=== PATIENT | male | born 1990 | race Caucasian/White ===

== ENCOUNTER 2018-07-13 09:16 | Observation (INO) ==
[2018-07-13] MEDS ORDERED: Sod Chloride 0.9% Inj 1,000 ML IV.SIG ONE (10:07)
[2018-07-13] MEDS ORDERED: Morphine Inj 4 MG/ML Vial IV.PUSH ONE (10:07)
--- NOTE | 2018-07-13 10:27 | ED ---
HPI General Chief Complaint: Abdominal Pain Stated Complaint: abd pain Time Seen by Provider: 07/13/18 09:57 Source: patient Mode of arrival: ambulatory Limitations: no limitations History of Present Illness HPI narrative: Patient is a previously healthy 28-year-old male who presents with complaint of abdominal pain. He states that last night he had sharp, aching periumbilical abdominal pain with 2 episodes of nonbilious, nonbloody emesis. The emesis has since resolved but he has noticed that the pain is more prominent at this time in the right lower quadrant. It worsens with walking. No diarrhea, fever, chills. This is never happened before. No sick contacts that he is aware of. He last ate at 0830 this morning when he had an egg. complaint: Reports abdominal pain Onset (ago): hour(s) Pain Consistency: constant Location: Reports periumbilical and RLQ Severity: moderate Quality: Reports aching Relieving factors: nothing Exacerbating factors: other Associated symptoms: Reports nausea and vomiting Related Data Home Medications Medication Instructions Recorded Confirmed No Known Home Medications 07/13/18 07/13/18 Allergies Allergy/AdvReac Type Severity Reaction Status Date / Time No Known Allergies Allergy Unverified 07/13/18 10:03 Review of Systems ROS: all other systems reviewed are negative [facility] Medical History Medical History Patient denies medical problems (Acute) Surgical History Surgical History No history of previous surgery (Acute) Social History Social History Substance History: Active Abuse Smoking Status: Former smoker How Often Do You Have a Drink Containing Alcohol: 2 to 3 times a week Recent Travel in [facility] within the Last 8 Weeks: No Recent Out of Country Travel within the Last 8 Weeks: No Substance Abuse Detail Marijuana: Substance Use Status: Active Route Used Substance Abuse: Inhalation Immunization History Tetanus Immunization: >5 Years Exam Narrative Exam Narrative: GENERAL: Well-appearing male in no acute distress SKIN: Focused skin assessment warm/dry. No rashes. HEAD: Atraumatic. Normocephalic. EYES: Pupils equal and round. No scleral icterus. No injection or drainage. ENT: No nasal bleeding or discharge. Mucous membranes pink and moist. NECK: Trachea midline. No JVD. CARDIOVASCULAR: Regular rate and rhythm. No murmur appreciated. Intact and equal peripheral pulses. RESPIRATORY: No accessory muscle use. Clear to auscultation. Breath sounds equal bilaterally. GASTROINTESTINAL: Abdomen soft, tenderness most prominent in the right lower quadrant, nondistended. Positive Rovsing's. Hepatic and splenic margins not palpable. MUSCULOSKELETAL: No obvious deformities. No clubbing. No cyanosis. No edema. NEUROLOGICAL: Awake and alert. No obvious cranial nerve deficits. Motor grossly within normal limits. Normal speech. PSYCHIATRIC: Appropriate mood and affect; insight and judgment normal. Course Initial Documented Vital Signs Temperature 98.2 F 07/13/18 09:24 Pulse Rate 69 07/13/18 09:24 Respiratory Rate 16 07/13/18 09:24 Blood Pressure 139/75 07/13/18 09:24 Pulse Oximetry 99 07/13/18 09:24 Last Documented Vital Signs Temperature 98.2 F 07/13/18 09:24 Pulse Rate 66 07/13/18 12:44 Respiratory Rate 18 07/13/18 12:44 Blood Pressure 125/64 07/13/18 12:44 Pulse Oximetry 99 07/13/18 12:44 Medical Decision Making MDM Narrative Medical decision making narrative: Patient is a 28-year-old male who presents with complaint of abdominal pain that started periumbilical and has migrated to the right lower quadrant. He otherwise appears well and has stable vital signs. Labs reveal a leukocytosis but are otherwise unremarkable. CT is concerning for acute appendicitis. Zosyn has been ordered and I spoke with Dr. Engel, surgeon on-call, regarding his appendicitis whom plans on admission. Patient and family have been informed of the results. Medical Screen Exam Complete: Yes Emergency Medical Condition: Yes Differential Diagnosis Differential Diagnosis: Differential diagnosis includes but is not limited to gastroenteritis, mesenteric adenitis, appendicitis. Medical Records Medical records reviewed: Yes I reviewed the patient's medical records. Lab Data Lab results reviewed: Yes I reviewed the patient's lab results. Lab results narrative: Leukocytosis. Result diagrams: 07/13/18 10:15 07/13/18 10:15 Lab Results 07/13/18 07/13/18 07/13/18 Range/Units 10:15 10:15 10:20 WBC 15.2 H (4.0-11.0) th/mm3 RBC 5.25 (4.50-5.90) mil/mm3 Hgb 15.4 (13.0-17.0) gm/dL Hct 45.7 (39.0-51.0) % MCV 87.0 (80.0-100.0) fL MCH 29.3 (27.0-34.0) pg MCHC 33.7 (32.0-36.0) % RDW 13.1 (11.6-17.2) % Plt Count 278 (150-450) th/mm3 MPV 10.0 (7.0-11.0) fL Neut % (Auto) 74.8 H (16.0-70.0) % Lymph % (Auto) 18.7 (9.0-44.0) % [place] % (Auto) 5.6 (0.0-8.0) % Eos % (Auto) 0.6 (0.0-4.0) % Baso % (Auto) 0.3 (0.0-2.0) % Neut # (Auto) 11.4 H (1.8-7.7) th/mm3 Lymph # (Auto) 2.8 (1.0-4.8) th/mm3 [place] # (Auto) 0.9 (0.0-0.9) th/mm3 Eos # (Auto) 0.1 (0.0-0.4) th/mm3 Baso # (Auto) 0.0 (0.0-0.2) th/mm3 WBC Differential . Differential Comment Auto diff final Sodium 140 (136-145) meq/L Potassium 4.1 (3.5-5.1) meq/L Chloride 105 (98-107) meq/L Carbon Dioxide 27.3 (21.0-32.0) meq/L Anion Gap 8 (5-15) meq/L BUN 9 (7-18) mg/dL Creatinine 0.79 (0.60-1.30) mg/dL Estimated GFR Greater than 89 (>89) mL/min Random Glucose 91 (74-106) mg/dL Calcium 9.2 (8.5-10.1) mg/dL Total Bilirubin 0.7 (0.2-1.0) mg/dL AST 15 (15-37) U/L ALT 25 (12-78) U/L Alkaline Phosphatase 70 (45-117) U/L Total Protein 7.8 (6.4-8.2) g/dL Albumin 4.2 (3.4-5.0) g/dL Lipase 71 L (73-393) U/L Urine Color Yellow (Yellw/Straw) Urine Clarity Clear (Clear) Urine pH 8.0 (5.0-8.5) Ur Specific [place] 1.008 (1.002-1.035) Urine Protein Negative (Neg-Trace) mg/dL Urine Glucose (UA) Negative (Negative) mg/dL Urine Ketones Negative (Negative) mg/dL Urine Occult Blood Negative (Negative) Urine Nitrate Negative (Negative) Urine Bilirubin Negative (Negative) Urine Urobilinogen Less than 2 (Less than 2) mg/dL Ur Leukocyte Esterase Negative (Negative) Urine RBC Less than 1 (0-3) /hpf Urine WBC Less than 1 (0-5) /hpf Micro UA Comment Culture not ind Ur Microscopic Review Not Reportable Urine Culture Comments Culture not ind Imaging Data Attestation: I personally reviewed and interpreted this imaging study as follows : My impression: Appendicitis. Radiologist's impression: Abdomen/Pelvis CT 07/13/18 10:07 CONCLUSION: The imaging findings are diagnostic of acute appendicitis without any signs of rupture. The appendix is located in a retrocecal position. These findings were telephoned to Dr. Clark on 07/13/2018 at 12:31 PM. Discharge Plan Discharge Disposition Patient Disposition: 30 Still Patient Discharge Condition Condition: Stable Discharge Details Diagnosis: Acute appendicitis Physicians Team ED Provider: Adina Clark Primary Care Provider: Primary Care Physici,No Other Providers: Kristopher Engel ; Surgeons,[facility] Rxs /Orders / Referrals /Forms Prescriptions: No Action No Known Home Medications RF: 0 Status ED Status: With Doctor
[2018-07-13 11:15] LABS: Baso % (Auto) 0.3 % (0.0-2.0); Eos # (Auto) 0.1 th/mm3 (0.0-0.4); Eos % (Auto) 0.6 % (0.0-4.0); Hematocrit 45.7 % (39.0-51.0); Hemoglobin 15.4 gm/dL (13.0-17.0); Lymph # (Auto) 2.8 th/mm3 (1.0-4.8); Lymph % (Auto) 18.7 % (9.0-44.0); Mean Corpuscular HGB Conc 33.7 % (32.0-36.0); Mean Corpuscular Hemoglobin 29.3 pg (27.0-34.0); Mono # (Auto) 0.9 th/mm3 (0.0-0.9); Mono % (Auto) 5.6 % (0.0-8.0); Neut # (Auto) 11.4 th/mm3 (1.8-7.7); Neut % (Auto) 74.8 % (16.0-70.0); Platelet Count 278 th/mm3 (150-450); Red Blood Count 5.25 mil/mm3 (4.50-5.90); Red Cell Distribution Width 13.1 % (11.6-17.2); White Blood Count 15.2 th/mm3 (4.0-11.0)
[2018-07-13 11:19] LABS: Bilirubin,Urine Negative (Negative); Clarity,Urine Clear (Clear); Color,Urine Yellow (Yellw/Straw); Glucose,Urine (UA) Negative (Negative); Leukocyte Esterase,Urine Negative (Negative); Nitrite,Urine Negative (Negative); Specific Gravity,Urine 1.008 (1.002-1.035)
[2018-07-13 11:30] LABS: Alanine Aminotransferase 25 U/L (12-78); Albumin 4.2 g/dL (3.4-5.0); Anion Gap 8 meq/L (5-15); Aspartate Aminotransferase 15 U/L (15-37); Blood Urea Nitrogen 9 mg/dL (7-18); Calcium 9.2 mg/dL (8.5-10.1); Carbon Dioxide 27.3 meq/L (21.0-32.0); Chloride 105 meq/L (98-107); Glomerular Filtration Rate Greater Than 89 mL/min (>89); Glucose,Random 91 mg/dL (74-106); Lipase 71 U/L (73-393); Potassium 4.1 meq/L (3.5-5.1); Sodium 140 meq/L (136-145)
[2018-07-13 11:33] LABS: Alkaline Phosphatase 70 U/L (45-117); Total Protein 7.8 g/dL (6.4-8.2)
--- NOTE | 2018-07-13 12:32 | CT ---
EXAM DATE: 07/13/2018 12:01 PM EDT AGE/SEX: 28 years / Male INDICATIONS: Right lower abdominal pain CLINICAL DATA: This is the patient's initial encounter. Patient reports that signs and symptoms have been present for 1 day and indicates a pain score of 4/10. MEDICAL/SURGICAL HISTORY: None. None. ORAL CONTRAST: No oral contrast ingested. RADIATION DOSE: 6.64 CTDI (mGy) COMPARISON: No prior exams available for comparison. TECHNIQUE: Multiple contiguous axial images were obtained through the abdomen and pelvis following b olus infusion of 97ML ml Omnipaque 350 (iohexol) nonionic water-soluble contrast as a single exam d ose. No oral contrast ingested. Using automated exposure control and adjustment of the mA and/or kV according to patient size, radiation dose was kept as low as reasonably achievable to obtain optimal diagnostic quality images. DICOM format image data is available electronically for review and compar ricki. FINDINGS: Lower chest: No acute abnormality is identified. Hepatobiliary: No focal liver lesion is identified. Hepatic vasculature demonstrates no abnormality. No calcified gallstones are present. Kidneys: No hydronephrosis, stone, or mass. Adrenal Glands: Within normal limits. Spleen: Within normal limits. Pancreas: Within normal limits. Vascular: The aorta is nonaneurysmal. Bowel/Mesentery: The stomach and small bowel demonstrate no abnormality. No acute colon abnormality i s seen. There is no free intraperitoneal air or fluid. The appendix is in a retrocecal position and d emonstrates a normal distention with diameter of 13 mm. Mild periappendiceal inflammation is present. No definite findings are seen to indicate rupture. There is no appendicolith seen. Abdominal Wall: No hernia is visualized. Retroperitoneum: No lymphadenopathy. Bladder: No wall thickening or mass. Reproductive: Within normal limits. Inguinal: No lymphadenopathy or hernia. Musculoskeletal: No acute osseous abnormality is identified. CONCLUSION: The imaging findings are diagnostic of acute appendicitis without any signs of rupture. The appendix is located in a retrocecal position. These findings were telephoned to Dr. Clark on 07/13/2018 at 12:31 PM. Electronically signed by: Mark Carvajal MD 07/13/2018 12:31 PM EDT
[2018-07-13] MEDS ORDERED: Piperacil/Tazo 4.5 GM Premix 4.5 GM/100 ML BAG IV.SIG ONE (12:33)
[2018-07-13] MEDS ORDERED: Morphine Inj 4 MG/ML Vial IV.PUSH PRN (13:35)
[2018-07-13] MEDS: Sod Chloride 0.9% Inj 1,000 ML IV.CONT SCH ×2 (14:42→23:54)
[2018-07-13] MEDS: Piperacil/Tazo 3.375 GM Premix 50 ML IV.SIG SCH (17:59)
[2018-07-13] MEDS ORDERED: Bupivacaine/Epinephrine Inj 0.25% 50 ML Vial ONE (22:03)
[2018-07-13] MEDS ORDERED: Chlorhexidine Gluconate 2% 1 Pack (2 Cloths) TOPICAL ONE (22:23)
[2018-07-13] MEDS ORDERED: Metoprolol Tartrate 25 MG Tablet PO ONE (22:23)
[2018-07-13] MEDS ORDERED: Ketorolac Inj 30 MG/ML (IVP) Vial IV.PUSH ONE (22:51)
[2018-07-13] MEDS ORDERED: Lidocaine PF 1% Inj 5 ML Syringe INFILTRATN ONE (22:51)
[2018-07-13] MEDS ORDERED: Glycopyrrolate Inj 1 MG/5 ML Syringe IV.PUSH ONE (22:51)
--- NOTE | 2018-07-13 22:51 | P.OP ---
- Preoperative Diagnosis (1) Acute appendicitis - Postoperative Diagnosis (1) Acute appendicitis Date of procedure: 07/13/18 Procedure: lap appy Anesthesia: GETA Surgeon: Kristopher Engel MD Estimated blood loss (mL): 5 Pathology: other (appendix) Operation and Findings: inflamed appendix
[2018-07-13] MEDS ORDERED: Sodium Chlor 0.9% Inj 500 ML IV.SIG SCH (23:00)
[2018-07-13] MEDS ORDERED: fentaNYL Citrate Inj 100 MCG/2 ML Ampul ONE (23:48)
[2018-07-13] MEDS ORDERED: *morphine SULFATE 4 MG/ML PERIprocedure ONLY ONE (23:48)
[2018-07-13] MEDS ORDERED: Sugammadex Inj 200 MG/2 ML Vial IV.PUSH ONE (23:51)
[2018-07-14] MEDS: Piperacil/Tazo 3.375 GM Premix 50 ML IV.SIG SCH ×3 (00:03→11:45)
[2018-07-14] MEDS ORDERED: *morphine SULFATE 4 MG/ML PERIprocedure ONLY ONE (00:03)
--- NOTE | 2018-07-14 00:03 | MP ---
cc: Kristopher Engel MD DATE OF OPERATION: 07/13/2018 PREOPERATIVE DIAGNOSIS: Acute appendicitis. POSTOPERATIVE DIAGNOSIS: Acute appendicitis. PROCEDURE PERFORMED: Laparoscopic appendectomy. SURGEON: Kristopher Engel MD VP PRODUCT MARKETING: None. ANESTHESIA: GETA. INTRAVENOUS FLUIDS: See anesthesia sheet. ESTIMATED BLOOD LOSS: 5 mL. DRAINS: None. COMPLICATIONS: None. WOUND CLASSIFICATION: Clean/contaminated. SPECIMEN: Appendix. FINDINGS: Distended acute appendicitis. No perforation. Good hemostasis. INDICATIONS: The patient is a 28-year-old male who presented with an acute onset of right lower quadrant abdominal pain and had CT findings of acute appendicitis. Therefore, the decision for laparoscopic appendectomy. DETAILS OF PROCEDURE: The patient was taken to the operating suite, placed in supine position and prepped and draped in usual sterile fashion after induction of general endotracheal anesthesia. A brief timeout was done, stating correct patient, procedure, surgical site. We were all in agreement with this. Attention was first directed to the umbilicus where a small stab paulie incision was made with an 11 blade after injection of local anesthetic. The abdomen was entered with a 5 mm Optiview Visiport. The abdomen was insufflated to 15 mm of pneumoperitoneum. On cursory inspection, no evidence of injury. Two other ports were placed, one 5 mm suprapubic followed by a left lower quadrant 5 mm port. The patient was placed in Trendelenburg and airplaned to the left. In the right lower quadrant, the appendix was identified and noted to be retrocecal and relatively distended. No evidence of perforation. A small window was made in the base of the mesoappendix with Bovie electrocautery and a [place] grasper. A 35 PING was used to transect the base of the appendix. The 35 was used to transect the mesoappendix. The appendix was placed in an EndoCatch bag and removed from the abdomen. Ray-Tecs were used to absorb a small amount of bleeding. Bleeding points were controlled with [place] and Bovie electrocautery. A small piece of Surgicel was placed to the mesoappendix. The patient had pneumoperitoneum removed. Ports were removed. The 12 mm port was closed with 0 Vicryl in a [id number] fashion and 4-0 Monocryl was used for subcuticular sutures. Sterile dressings including Mastisol and Steri-Strips were placed. The patient tolerated the procedure well. There were no intraoperative complications. All lap and instrument counts were correct at the end of the procedure. The patient was extubated and taken stable to the PACU. MD CHARISMA Henriquez/heather , 11:34 PM , 11:41 PM
[2018-07-14] MEDS: Sod Chloride 0.9% Inj 1,000 ML IV.CONT SCH ×3 (05:49→14:02)
[2018-07-14 06:09] LABS: Baso % (Auto) 0.3 % (0.0-2.0); Eos % (Auto) 0.1 % (0.0-4.0); Hematocrit 43.8 % (39.0-51.0); Hemoglobin 14.6 gm/dL (13.0-17.0); Lymph % (Auto) 7.2 % (9.0-44.0); Mean Corpuscular HGB Conc 33.4 % (32.0-36.0); Mean Corpuscular Hemoglobin 29.3 pg (27.0-34.0); Mean Corpuscular Volume 87.8 fL (80.0-100.0); Mean Platelet Volume 9.9 fL (7.0-11.0); Mono # (Auto) 0.3 th/mm3 (0.0-0.9); Mono % (Auto) 2.1 % (0.0-8.0); Neut % (Auto) 90.3 % (16.0-70.0); Platelet Count 253 th/mm3 (150-450); Red Blood Count 4.98 mil/mm3 (4.50-5.90); White Blood Count 13.3 th/mm3 (4.0-11.0)
[2018-07-14 06:31] LABS: Anion Gap 9 meq/L (5-15); Blood Urea Nitrogen 10 mg/dL (7-18); Calcium 8.7 mg/dL (8.5-10.1); Carbon Dioxide 25.4 meq/L (21.0-32.0); Chloride 109 meq/L (98-107); Glomerular Filtration Rate Greater Than 89 mL/min (>89); Glucose,Random 113 mg/dL (74-106); Sodium 143 meq/L (136-145)
[2018-07-14 08:57] VITALS: RESP 17; TEMP 97.8
[2018-07-14] MEDS ORDERED: Pantoprazole Inj 40 MG Vial IV.PUSH SCH (09:00)
--- NOTE | 2018-07-14 09:46 | P.PNGS ---
Subjective Patient reports: no new complaints, feels better, flatus Physical Exam Vital signs: Vital Signs 07/13/18 12:44 07/13/18 14:43 07/13/18 16:00 Temperature 98.1 F Pulse Rate 66 90 62 Respiratory Rate 18 20 16 Blood Pressure 125/64 133/78 111/65 Pulse Oximetry 99 98 99 07/13/18 20:00 07/13/18 23:40 07/13/18 23:45 Temperature 98.0 F 97.6 F Pulse Rate 53 L 97 H 86 Respiratory Rate 17 15 10 L Blood Pressure 123/63 134/74 126/62 Pulse Oximetry 98 100 100 07/14/18 00:00 07/14/18 00:04 07/14/18 00:13 Temperature 98.1 F Pulse Rate 66 Respiratory Rate 17 10 L 12 Blood Pressure 120/65 Pulse Oximetry 98 07/14/18 00:15 07/14/18 04:00 07/14/18 08:00 Temperature 97.6 F 97.0 F L 97.8 F Pulse Rate 75 59 L 59 L Respiratory Rate 15 18 17 Blood Pressure 132/65 133/67 120/64 Pulse Oximetry 100 99 97 Intake & Output 07/13/18 07/14/18 07/14/18 18:59 06:59 18:59 Intake Total 1150 / 1150 3340 / 3340 1000 / 1000 Output Total 605 / 605 Balance 1150 / 1150 2735 / 2735 1000 / 1000 Weight 83.915 kg 83 kg Intake: IV 1150 / 1150 2100 / 2100 1000 / 1000 NS Inj 1,000 ML @ 125 mls/hr IV 2000 / 2000 1000 / 1000 .CONT .Q8H BARRERA Rx#:[id number] Zosyn 3.375 GM Premix 50 ML @ 50 / 50 100 / 100 100 mls/hr IV.SIG Q6H BARRERA Rx#: [id number] Zosyn 4.5 GM Premix 4.5 gm In 100 / 100 100 ml @ 200 mls/hr IV.SIG ONCE ONE Rx#:[id number] NS Inj 1,000 ML @ Wide Open IV. 1000 / 1000 SIG BOLUS ONE Rx#:[id number] Oral 0 / 0 240 / 240 Anesthesia Amount 1000 / 1000 Output: Urine 600 / 600 Estimated Blood Loss 5 / 5 Other: # Voids 2 Date of Last Bowel Movement 07/13/18 - Routine Respiratory Exam Present: CTA bilaterally - Routine Cardiovascular Exam Present: RRR - Routine Abdominal Exam Present: soft (incisional tenderness) Results - Labs 07/14/18 05:17 07/14/18 05:17 Laboratory Results - last 24 hr 07/13/18 07/13/18 07/13/18 10:15 10:15 10:20 WBC 15.2 H RBC 5.25 Hgb 15.4 Hct 45.7 MCV 87.0 MCH 29.3 MCHC 33.7 RDW 13.1 Plt Count 278 MPV 10.0 Neut % (Auto) 74.8 H Lymph % (Auto) 18.7 [place] % (Auto) 5.6 Eos % (Auto) 0.6 Baso % (Auto) 0.3 Neut # (Auto) 11.4 H Lymph # (Auto) 2.8 [place] # (Auto) 0.9 Eos # (Auto) 0.1 Baso # (Auto) 0.0 WBC Differential . Differential Comment Auto diff final Sodium 140 Potassium 4.1 Chloride 105 Carbon Dioxide 27.3 Anion Gap 8 BUN 9 Creatinine 0.79 Estimated GFR Greater than 89 Random Glucose 91 Calcium 9.2 Total Bilirubin 0.7 AST 15 ALT 25 Alkaline Phosphatase 70 Total Protein 7.8 Albumin 4.2 Lipase 71 L Urine Color Yellow Urine Clarity Clear Urine pH 8.0 Ur Specific [place] 1.008 Urine Protein Negative Urine Glucose (UA) Negative Urine Ketones Negative Urine Occult Blood Negative Urine Nitrate Negative Urine Bilirubin Negative Urine Urobilinogen Less than 2 Ur Leukocyte Esterase Negative Urine RBC Less than 1 Urine WBC Less than 1 Micro UA Comment Culture not ind Ur Microscopic Review Not Reportable Urine Culture Comments Culture not ind 07/14/18 07/14/18 05:17 05:17 WBC 13.3 H RBC 4.98 Hgb 14.6 Hct 43.8 MCV 87.8 MCH 29.3 MCHC 33.4 RDW 13.0 Plt Count 253 MPV 9.9 Neut % (Auto) 90.3 H Lymph % (Auto) 7.2 L [place] % (Auto) 2.1 Eos % (Auto) 0.1 Baso % (Auto) 0.3 Neut # (Auto) 12.0 H Lymph # (Auto) 1.0 [place] # (Auto) 0.3 Eos # (Auto) 0.0 Baso # (Auto) 0.0 WBC Differential . Differential Comment Auto diff final Sodium 143 Potassium 4.0 Chloride 109 H Carbon Dioxide 25.4 Anion Gap 9 BUN 10 Creatinine 0.83 Estimated GFR Greater than 89 Random Glucose 113 H Calcium 8.7 Total Bilirubin AST ALT Alkaline Phosphatase Total Protein Albumin Lipase Urine Color Urine Clarity Urine pH Ur Specific [place] Urine Protein Urine Glucose (UA) Urine Ketones Urine Occult Blood Urine Nitrate Urine Bilirubin Urine Urobilinogen Ur Leukocyte Esterase Urine RBC Urine WBC Micro UA Comment Ur Microscopic Review Urine Culture Comments - Imaging Imaging: ITS Impressions Abdomen/Pelvis CT 07/13/18 10:07 CONCLUSION: The imaging findings are diagnostic of acute appendicitis without any signs of rupture. The appendix is located in a retrocecal position. These findings were telephoned to Dr. Clark on 07/13/2018 at 12:31 PM. Assessment and Plan - Plan POD 1 lap appy plan d/c home reg diet oob pain control po dvt ppx
[2018-07-14 12:08] VITALS: BP 110/59; PULSE 89; O2SAT 98
--- NOTE | 2018-07-26 14:30 | P.HPGS ---
History of Present Illness Service: General Surgery Primary Care Physician: No Primary Care Physician Chief Complaint: Abdominal pain History of Present Illness: This is a 28 year old male with complaints of abdominal pain wich started 24 hours ago. Pain was 8/10, currently 7/10, sharp, worse with movement. Better with staying still. He has with associated nausea and vomiting. He has never had pain like this before. A CT abdomen/pelvis was obtained which shows acute appendicitis. The patient does have an elevated WBC. A General Surgery admission has been requested for evaluation of laparoscopic appendectomy. - Diagnosis (1) Acute appendicitis Review of Systems All other systems reviewed negative except as stated in HPI Constitutional: Denies anorexia, Denies chills Eyes: Denies blurry vision, Denies irritation Ears, Nose, Mouth, and Throat: Denies bleeding gums, Denies dental pain Cardiovascular: Denies chest pain at rest, Denies excessive sweating Respiratory: Denies chest congestion, Denies cough, Denies coughing up blood Gastrointestinal: Reports abdominal pain, Reports nausea, Reports vomiting, Denies constant urge to pass stool Genitourinary: Denies blood in urine, Denies side pain Musculoskeletal: Denies back pain, Denies muscle cramps Skin/Breast: Denies breast pain, Denies change in skin color Neurologic: Denies abnormal hearing, Denies behavioral changes Psychiatric: Denies anxiety, Denies change in sex drive Endocrine: Denies cold intolerance, Denies excessive sweating PMFSH - History History Provided By: Patient - Medical History Medical History: Medical History (Last Reviewed 07/26/18 @ 14:28 by NORMA Singh) Patient denies medical problems - Surgical History Surgical History: Surgical History (Last Reviewed 07/26/18 @ 14:28 by NORMA Singh) No history of previous surgery - Family History Family History: Family History (Last Updated 07/29/18 @ 21:31 by Kristopher Engel MD) Father No pertinent family history Other No family history of allergies No family history of diabetes mellitus - Tobacco History Second Hand Smoke Exposure: No Smoking Status: Never smoker - Alcohol History How Often Do You Have a Drink Containing Alcohol: Never - Substance Use History Substance History: No History of Abuse - Substance Use Type Marijuana Status: Active Route Used: Inhalation - Travel History Recent Travel in the [facility] Within the Last 8 Weeks: No Recent Travel Out of the Country Within the Last 8 Weeks: No - Immunization History Tetanus Immunization: >5 Years Medications and Allergies Allergies Allergy/AdvReac Type Severity Reaction Status Date / Time No Known Allergies Allergy Unverified 07/13/18 10:03 Home Medications Medication Instructions Recorded Confirmed Type No Known Home Medications 07/13/18 07/13/18 History Exam Narrative: GENERAL: 28 year old male resting in bed in no acute distress. SKIN: Warm and dry. HEAD: Atraumatic. Normocephalic. EYES: Pupils equal and round. No scleral icterus. No injection or drainage. ENT: No nasal bleeding or discharge. Mucous membranes pink and moist. NECK: Trachea midline. No JVD. CARDIOVASCULAR: Regular rate and rhythm. RESPIRATORY: No accessory muscle use. Clear to auscultation. Breath sounds equal bilaterally. GASTROINTESTINAL: Abdomen soft, non-tender, nondistended. RLQ and periumbilical tenderness. MUSCULOSKELETAL: Extremities without clubbing, cyanosis, or edema. No obvious deformities. NEUROLOGICAL: Awake and alert. No obvious cranial nerve deficits. Motor grossly within normal limits. Five out of 5 muscle strength in the arms and legs. Normal speech. PSYCHIATRIC: Appropriate mood and affect; insight and judgment normal. Results - Labs 07/14/18 05:17 07/14/18 05:17 - Imaging Imaging: ITS Impressions Abdomen/Pelvis CT 07/13/18 10:07 CONCLUSION: The imaging findings are diagnostic of acute appendicitis without any signs of rupture. The appendix is located in a retrocecal position. These findings were telephoned to Dr. Clark on 07/13/2018 at 12:[address] scan - abdomen: image reviewed Caprini VTE Risk Assessment Caprini VTE Risk Assessment: No/Low Risk (score <= 1) VTE Pharmacological Exception Reason: Documented (Going to OR ) Caprini Risk Assessment Model: Point Value = 1 Point Value = 2 Point Value = 3 Point Value = 5 Age 41-60 Minor surgery BMI > 25 kg/m2 Swollen legs Varicose veins or History of unexplained or recurrent spontaneous Oral contraceptives or hormone replacement Sepsis (< 1 month) Serious lung disease, including pneumonia (< 1 month) Abnormal pulmonary function Acute myocardial infarction Congestive heart failure (< 1 month) History of inflammatory bowel disease Medical patient at bed rest Age 61-74 Arthroscopic surgery Major open surgery (> 45 min) Laparoscopic surgery (> 45 min) Malignancy Confined to bed (> 72 hours) Immobilizing plaster cast Central venous access Age >= 75 History of VTE Family history of VTE Factor V Leiden Prothrombin [id number] Lupus anticoagulant Anticardiolipin antibodies Elevated serum homocysteine Heparin-induced thrombocytopenia Other congenital or acquired thrombophilia Stroke (< 1 month) Elective arthroplasty Hip, pelvis, or leg fracture Acute spinal cord injury (< 1 month) Prophylaxis Regimen: Total Risk Factor Score Risk Level Prophylaxis Regimen 0-1 Low Early ambulation 2 Moderate Order ONE of the following: *Sequential Compression Device (SCD) *Heparin 5000 units SQ BID 3-4 Higher Order ONE of the following medications: *Heparin 5000 units SQ TID *Enoxaparin/Lovenox 40 mg SQ daily (WT < 150 kg, CrCl > 30 mL/min) *Enoxaparin/Lovenox 30 mg SQ daily (WT < 150 kg, CrCl > 10-29 mL/min) *Enoxaparin/Lovenox 30 mg SQ BID (WT < 150 kg, CrCl > 30 mL/min) AND/OR *Sequential Compression Device (SCD) 5 or more Highest Order ONE of the following medications: *Heparin 5000 units SQ TID (Preferred with Epidurals) *Enoxaparin/Lovenox 40 mg SQ daily (WT < 150 kg, CrCl > 30 mL/min) *Enoxaparin/Lovenox 30 mg SQ daily (WT < 150 kg, CrCl > 10-29 mL/min) *Enoxaparin/Lovenox 30 mg SQ BID (WT < 150 kg, CrCl > 30 mL/min) AND *Sequential Compression Device (SCD) Assessment and Plan - Assessment (1) Acute appendicitis Code(s): K35.80 - Unspecified acute appendicitis Status: Acute Qualifiers: Acute appendicitis type: unspecified acute appendicitis type Qualified Code (s): K35.80 - Unspecified acute appendicitis Plan: 28 year old male with acute appendicitis -Plan for OR for laparoscopic appendectomy -NPO -IVF -Antibiotics -Obtain consents -All questions answered - Attending Attestation patient seen at bedside acute onset of rlq pain acute appendicitis CT confirms this will plan for OR for excision The exam, history, and the medical decision-making described in the above note were completed with the assistance of the mid-level provider. I reviewed and agree with the findings presented. I attest that I had a [id number] encounter with the patient on the same day, and personally performed and documented my assessment and findings in the medical record. H&P: Quality - VTE Deep Vein Thrombosis/Pulmonary Embolism Present on Admission: Yes
--- NOTE | 2018-07-31 10:46 | MH ---
cc: Kristopher Engel MD DATE OF ADMISSION: 07/13/2018 CHIEF COMPLAINT: Abdominal pain, acute appendicitis. HISTORY OF PRESENT ILLNESS: The patient is a 28-year-old male who presents with acute onset of abdominal pain. He states the pain started approximately 2 days ago and continued to get worse. He had an episode of sharp pain at the umbilicus and radiated to the right lower quadrant. He states the pain was a 9/10 in some situations and waxed and waned and continued to get worse. He has some improvement with IV pain medication. Denies any fever. Did have further workup including CT scan showing acute appendicitis, WBC of 15.2, leukocytosis. He has never had pain quite like this before. He is otherwise relatively healthy. PAST MEDICAL HISTORY: The patient denies any medical issues. PAST SURGICAL HISTORY: The patient has had right hand surgery. SOCIAL HISTORY: Denies smoking, ETOH or IVDA. ALLERGIES: NO KNOWN DRUG ALLERGIES. MEDICATIONS: See electronic medical record. FAMILY HISTORY: Father with brain cancer. Mother healthy. Denies any other medical problems. PHYSICAL: GENERAL: Denies fever or chills. HEENT: Denies eye pain, ear pain. NECK: Denies swelling or pain. LUNGS: Denies cough or wheeze. HEART: Denies palpitations or chest pain. ABDOMEN: Complains of nausea, vomiting and right lower quadrant abdominal pain. GENITOURINARY: Denies dysuria or hematuria. ENDOCRINE: Denies polyuria or polydipsia. INTEGUMENT: Denies any masses or lesions. NEUROLOGIC: Denies numbness or tingling. PSYCHIATRIC: Appropriate mood, appropriate affect. PHYSICAL EXAMINATION: GENERAL: The patient in no acute distress. VITAL SIGNS: Temperature 98.2, pulse 69, respirations 16, blood pressure 139/75, saturation 99%. HEENT: Pupils equal, round, reactive. NECK: Supple. Trachea midline. LUNGS: Clear to auscultation, bilateral expansion. HEART: S1, S2 regular. ABDOMEN: Soft, positive tenderness to palpation in the right lower quadrant. Positive rebound in right lower quadrant. EXTREMITIES: Warm and well perfused. NEUROLOGIC: GCS of 15, 5/5 motor in all extremities. BACK: Nontender. PSYCHIATRIC: Appropriate insight. Appropriate affect. LABORATORY AND DIAGNOSTIC DATA: WBC 15.2, hemoglobin 15.4, hematocrit 45.7, platelets 278. Sodium 140, potassium 4.1, chloride 105, BUN 9, creatinine 0.7, calcium 9.2, bilirubin 0.7, AST 15, ALT 25, alkaline phosphatase is 70, lipase 71. CT reviewed by myself showing acute appendicitis. The patient is a 28-year-old male who presents with history of abdominal pain, right lower quadrant and CT findings consistent with acute appendicitis. PLAN: After full clinical, radiologic and laboratory workup, the patient with the above named issues. At this point, the patient has acute appendicitis. We will put on IV antibiotics, IV pain control, n.p.o. patient will plan for operative intervention including laparoscopic appendectomy. Discussed with the patient in detail, he understands and agrees. MD ZACHARY HenriquezN/ct , 02:42 PM , 02:50 PM
== END 2018-07-14 14:27 | disposition home or self-care (01) ==
LOC: NEDA 09:16 → NEPD 09:16 → NEDA 15:17 → N07 15:21
PROVIDERS: ADMIT Surgery; ATTEND Surgery
PROC: LAPAPPY (ICD-10-PCS; 2018-07-13 22:50)